=== PATIENT | male | born 1965 | race American Indian/Alaskan Native ===

== ENCOUNTER 2016-11-28 13:28 | Emergency (ER) | payer BC ==
[2016-11-28 13:50] VITALS: BMI 38.7
--- NOTE | 2016-11-28 13:56 | ED PDOC ---
Arrival/HPI - General Chief Complaint: Cough, Cold, Congestion Time Seen by Provider: 11/28/16 13:53 Historian: Patient, Spouse - History of Present Illness Time/Duration: Other (1 day) Symptom Onset: Gradual Symptom Course: Worsening Severity Level: Mild Activities at Onset: Rest Associated Symptoms (Text): 11/28/16 13:55 Patient complains of a nonproductive cough along with shortness of breath since yesterday. No chest pain. No wheezing. No URI symptoms. No earache or sore throat. No fever or chills. No travel or exposures. No injury or trauma. He does not appear ill. Past Medical History - Infectious Disease Hx of Infectious Diseases: None - Tetanus Immunization Tetanus Immunization: Unknown - Past Medical History Past Medical History: No Previous - Cardiac Hx Cardiac Disorders: No - Pulmonary Hx Respiratory Disorders: Yes Hx Bronchitis: Yes - Neurological Hx Neurological Disorder: No - HEENT Hx HEENT Disorder: No - Renal Hx Renal Disorder: No - Endocrine/Metabolic Hx Endocrine Disorders: No - Hematological/Oncological Hx Blood Disorders: No - Integumentary Hx Dermatological Disorder: No - Musculoskeletal/Rheumatological Hx Musculoskeletal Disorders: No - Gastrointestinal Hx Gastrointestinal Disorders: No - Genitourinary/Gynecological Hx Genitourinary Disorders: No - Psychiatric Hx Psychophysiologic Disorder: No Hx Depression: No Hx Emotional Abuse: No Hx Physical Abuse: No Hx Substance Use: No - Past Surgical History Past Surgical History: Non-Contributing - Surgical History Hx Orthopedic Surgery: Yes (left knee) - Anesthesia Hx Anesthesia: Yes Hx Anesthesia Reactions: No - Suicidal Assessment Feels Threatened In Home Enviroment: No Family/Social History - Physician Review Nursing Documentation Reviewed: Yes Family/Social History: Unknown Family HX Smoking Status: Never Smoked Hx Alcohol Use: Yes Frequency of alcohol use: Socially Hx Substance Use: No Hx Substance Use Treatment: No Allergies/Home Meds Allergies/Adverse Reactions: Allergies No Known Allergies Allergy (Verified 02/23/16 20:02) Home Medications: Home Meds Medication Instructions Recorded Confirmed Aspirin [Ecotrin] 81 mg PO DAILY 02/23/16 02/23/16 Review of Systems - Physician Review All systems were reviewed & negative as marked: Yes - Review of Systems Constitutional: Normal ENT: Normal Respiratory: SOB, Cough. absent: Sputum, Wheezing Cardiovascular: Normal Gastrointestinal: Normal Neurological: Normal Physical Exam Vital Signs Temp Pulse Resp BP Pulse Ox 11/28/16 13:56 99.5 F 86 17 163/101 H 100 Temperature: Afebrile Blood Pressure: Hypertensive Pulse: Regular Respiratory Rate: Normal Appearance: Positive for: Well-Appearing, Non-Toxic, Comfortable Pain Distress: None Mental Status: Positive for: Alert and Oriented X 3 - Systems Exam Head: Present: Atraumatic, Normocephalic Pupils: Present: PERRL Extroacular Muscles: Present: EOMI Conjunctiva: Present: Normal Ears: Present: NORMAL TM, Normal Canal. No: Erythema Mouth: Present: Moist Mucous Membranes Pharnyx: No: ERYTHEMA, EXUDATE, TONSILS ENLARGED Neck: Present: Normal Range of Motion Respiratory/Chest: Present: Clear to Auscultation, Good Air Exchange, Decreased Breath Sounds. No: Respiratory Distress, Accessory Muscle Use Cardiovascular: Present: Regular Rate and Rhythm, Normal S1, S2. No: Murmurs Neurological: Present: GCS=15, CN II-XII Intact, Speech Normal, Motor Func Grossly Intact Skin: Present: Warm, Dry, Normal Color. No: Rashes Psychiatric: Present: Alert, Oriented x 3, Normal Insight, Normal Concentration Medical Decision Making ED Course and Treatment: 11/28/16 14:04 Patient will need follow-up with his PMD for hypertension check. Disposition/Present on Arrival - Present on Arrival Any Indicators Present on Arrival: No History of DVT/PE: No History of Uncontrolled Diabetes: No Urinary Catheter: No History of Decub. Ulcer: No History Surgical Site Infection Following: None - Disposition Have Diagnosis and Disposition been Completed?: Yes Diagnosis: Bronchitis, Hypertension Disposition: HOME/ ROUTINE Disposition Time: 14:04 Patient Plan: Discharge Condition: GOOD Discharge Instructions (ExitCare): Acute Bronchitis (ED) Additional Instructions: Follow-up with PMD. Hypertension check with PMD. Tylenol or Advil as directed on bottle as needed. Symptomatic treatment. follow-up in ER as needed. Prescriptions: Benzonatate [Tessalon Perles] 100 mg PO Q8 #30 sgl Albuterol HFA [Ventolin HFA 90 mcg/actuation (8 g)] 2 puff IH [id number] #1 puff Azithromycin [Zithromax] 250 mg PO DAILY #6 tab Forms: [employer] (Ukrainian)
[2016-11-28 13:57] VITALS: BP 163/101; PULSE 86; RESP 17; TEMP 99.5; O2SAT 100
== END 2016-11-28 14:21 | disposition home or self-care (01) ==
LOC: ED 13:28
DX: J40 Bronchitis, not specified as acute or chronic (principal); I10 Essential (primary) hypertension

== ENCOUNTER 2017-03-01 08:08 | Emergency (ER) | payer BC ==
[2017-03-01 08:09] VITALS: BMI 38.7
[2017-03-01 08:33] VITALS: RESP 18
--- NOTE | 2017-03-01 08:41 | ED PDOC ---
Arrival/HPI - General Chief Complaint: Chest Pain Time Seen by Provider: 03/01/17 08:11 Historian: Patient, Spouse () - History of Present Illness Narrative History of Present Illness (Text): 03/01/17 08:24 A 51 year old male, with no significant past medical history, presents to the emergency department complaining of mid-chest pain. Patient reports pain is on and off with episodes last less than 1 minute. Describes pain as "pulling" sensation. 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 Pain is currently resolved. Patient denies any fever, cough, nausea, nasal congestion, or any other complaints. Denies any history of smoking/ EtOH abuse. PMD: Dr. Mamie Fink Past Medical History - Provider Review Nursing Documentation Reviewed: Yes - Infectious Disease Hx of Infectious Diseases: None - Tetanus Immunization Tetanus Immunization: Unknown - Past Medical History Past Medical History: No Previous - Cardiac Hx Cardiac Disorders: No - Pulmonary Hx Respiratory Disorders: Yes Hx Bronchitis: Yes - Neurological Hx Neurological Disorder: No - HEENT Hx HEENT Disorder: No - Renal Hx Renal Disorder: No - Endocrine/Metabolic Hx Endocrine Disorders: No - Hematological/Oncological Hx Blood Disorders: No - Integumentary Hx Dermatological Disorder: No - Musculoskeletal/Rheumatological Hx Musculoskeletal Disorders: No - Gastrointestinal Hx Gastrointestinal Disorders: No - Genitourinary/Gynecological Hx Genitourinary Disorders: No - Psychiatric Hx Psychophysiologic Disorder: No Hx Depression: No Hx Emotional Abuse: No Hx Physical Abuse: No Hx Substance Use: No - Past Surgical History Past Surgical History: Non-Contributing - Surgical History Hx Orthopedic Surgery: Yes (left knee) - Anesthesia Hx Anesthesia: Yes Hx Anesthesia Reactions: No - Suicidal Assessment Feels Threatened In Home Enviroment: No Family/Social History - Physician Review Nursing Documentation Reviewed: Yes Family/Social History: No Known Family HX Smoking Status: Never Smoked Hx Alcohol Use: Yes Frequency of alcohol use: Socially Hx Substance Use: No Hx Substance Use Treatment: No Allergies/Home Meds Allergies/Adverse Reactions: Allergies No Known Allergies Allergy (Verified 02/23/16 20:02) Home Medications: Home Meds Medication Instructions Recorded Confirmed Aspirin [Ecotrin] 81 mg PO DAILY 02/23/16 03/01/17 Review of Systems - Physician Review All systems were reviewed & negative as marked: Yes - Review of Systems Constitutional: absent: Fevers ENT: absent: Sinus Congestion Cardiovascular: Chest Pain (middle of chest) Gastrointestinal: absent: Abdominal Pain, Nausea Physical Exam Vital Signs Reviewed: Yes Vital Signs Temp Pulse Resp BP Pulse Ox 03/01/17 13:31 68 18 171/81 H 97 03/01/17 11:57 65 18 170/104 H 100 03/01/17 10:50 98.8 F 71 18 99 03/01/17 08:19 98.5 F 73 18 177/71 H 99 Temperature: Afebrile Blood Pressure: Hypertensive Pulse: Regular Respiratory Rate: Normal Appearance: Positive for: Well-Appearing Pain Distress: None Mental Status: Positive for: Alert and Oriented X 3 - Systems Exam Respiratory/Chest: Present: Clear to Auscultation, Good Air Exchange, Other ( chest wall tenderness). No: Respiratory Distress, Accessory Muscle Use Cardiovascular: Present: Regular Rate and Rhythm, Normal S1, S2. No: Murmurs Abdomen: Present: Normal Bowel Sounds. No: Tenderness, Distention, Peritoneal Signs Upper Extremity: Present: Normal Inspection. No: Cyanosis, Edema Lower Extremity: Present: Normal Inspection. No: Edema Neurological: Present: GCS=15, CN II-XII Intact, Speech Normal Skin: Present: Warm, Dry, Normal Color. No: Rashes Psychiatric: Present: Alert, Oriented x 3, Normal Insight, Normal Concentration Medical Decision Making ED Course and Treatment: 03/01/17 08:29 Impression: 51 tear old male with mid-chest pain. Physical exam shows chest wall tenderness and no abdominal tenderness; otherwise rest of examination is normal. Differential Diagnosis included but are not limited to: Chest Pain Musculoskeletal vs. Cardiac Plan: -- EKG -- Chest X-ray -- Labs -- Aspirin -- Reassess and disposition Prior Visits: Notes and results from previous visits were reviewed. Patient was last seen in the emergency department on 11/28/2016 for non-productive cough and shortness of breath. Patient was discharged home. Progress Notes: EKG: Ordered, reviewed, and independently interpreted the EKG. Rate : 72 BPM Rhythm : NSR Interpretation : No ST-segment elevations or depressions, no T-wave inversions, normal intervals. Comparison : No change from previous EKG from 05/11/2013. 03/01/2017 09:14 Chest X-ray IMPRESSION: No active disease. No significant interval change compared to the prior examination(s). Dictator: Matheus Vazquez MD Patients EKG normal. CXR negative. Patient has troponin negative x 2. On reevaluation, lungs are CTA b/l. Abdomen is soft, NT, ND, BSx4. Negative Leon' s sign. He is aware of his results and will make sure to follow up with Dr. Mcarthur. He was referred to Dr. Galleog who's automatic centrifugal station operator for Cardiology but he may also consult Dr. Mcarthur for a Equipment Analyst. He was advised to return to the ED if symptoms worsen or any other concern. - Lab Interpretations Lab Results: 03/01/17 08:40 03/01/17 08:40 Lab Results 03/01/17 12:30: Troponin I 0.02 03/01/17 08:40: Sodium 135, Potassium 4.9, Chloride 102, Carbon Dioxide 26, Anion Gap 12, BUN 13, Creatinine 0.8, Est GFR ( Amer) > 60, Est GFR (Non- Af Amer) > 60, Random Glucose 109, Calcium 8.7, Magnesium 1.7, Total Bilirubin 1.6 H, AST 61 H, ALT 50, Alkaline Phosphatase 67, Lactate Dehydrogenase 886 H, Total Creatine Kinase 697 H, CK-MB (CK-2) 4.0 H, CK-MB (CK-2) % Cancelled, Troponin I 0.02 D, Total Protein 8.1, Albumin 4.1, Globulin 3.9, Albumin/ Globulin Ratio 1.1 03/01/17 08:40: WBC 5.1, RBC 4.41, Hgb 14.0, Hct 40.5 L, MCV 91.8, MCH 31.7, MCHC 34.6, RDW 12.8, Plt Count 260, MPV 9.9, Gran % 52.9, Lymph % (Auto) 36.6 H , [place] % (Auto) 8.1 H, Eos % (Auto) 2.2, Baso % (Auto) 0.2, Gran # 2.68, Lymph # 1.9, [place] # 0.4, Eos # 0.1, Baso # 0.01 I have reviewed the lab results: Yes - RAD Interpretation Radiology Orders: 03/01/17 08:29 CHEST PORTABLE [RAD] Stat - Medication Orders Current Medication Orders: Discontinued Medications Aspirin (Aspirin) 325 mg PO STAT STA Stop: 03/01/17 08:30 Last Admin: 03/01/17 08:49 Dose: 325 mg - Scribe Statement The provider has reviewed the documentation as recorded by the Milo Porter Provider Milo Attestation: All medical record entries made by the Delfinoiblynette were at my direction and personally dictated by me. I have reviewed the chart and agree that the record accurately reflects my personal performance of the history, physical exam, medical decision making, and the department course for this patient. I have also personally directed, reviewed, and agree with the discharge instructions and disposition. Disposition/Present on Arrival - Present on Arrival Any Indicators Present on Arrival: No History of DVT/PE: No History of Uncontrolled Diabetes: No Urinary Catheter: No History of Decub. Ulcer: No History Surgical Site Infection Following: None - Disposition Have Diagnosis and Disposition been Completed?: Yes Diagnosis: Chest pain Disposition: HOME/ ROUTINE Disposition Time: 13:33 Condition: IMPROVED Discharge Instructions (ExitCare): Chest Pain (ED), Hypertension (ED) Additional Instructions: Mr Weiss, thank you for letting us take care of you today. Your provider was Dr. Alfaro You were treated for Chest Pain. The emergency medical care you received today was directed at your acute symptoms. If you were prescribed any medication, please fill it and take as directed. It may take several days for your symptoms to resolve. Return to the Emergency Department if your symptoms worsen, do not improve, or if you have any other problems. Please contact your doctor or call one of the physicians/clinics you have been referred to that are listed on the Patient Visit Information form that is included in your discharge packet. Bring any paperwork you were given at discharge with you along with any medications you are taking to your follow up visit. Our treatment cannot replace ongoing medical care by a primary care provider (PCP) outside of the emergency department. Thank you for allowing the [facility] team to be part of your care today. If you had an X-Ray or CT scan: A Radiologist will review the ED reading if any change in treatment is needed we will contact you. If you had a blood, urine, or wound culture: It will take several days for the results, if any change in treatment is needed we will contact you. If you had an STI test: It will take 48 hours for the results. Please call after 1 week if you have not heard back. Referrals: Robinson Gallego MD [Staff Provider] - Follow up with primary Mamie Key MD [Family Provider] - Follow up with primary Forms: [employer] (Bangladeshi), WORK NOTE
[2017-03-01 08:52] LABS: BASO # 0.01 K/mm3 (0.0-2.0); BASO % 0.2 % (0.0-3.0); EOS # 0.1 (0.0-0.7); EOS % 2.2 % (1.5-5.0); GRAN # 2.68 (1.4-6.5); GRAN % 52.9 % (50.0-68.0); LYMPH # 1.9 (1.2-3.4); LYMPH % 36.6 % (22.0-35.0); MEAN CELL VOLUME 91.8 fl (80.0-105.0); MEAN CORPUSCULAR HEMOGLOBIN 31.7 pg (25.0-35.0); MEAN CORPUSCULAR HGB CONC 34.6 g/dl (31.0-37.0); MEAN PLATELET VOLUME 9.9 fl (7.0-11.0); MONO # 0.4 (0.1-0.6); MONO % 8.1 % (1.0-6.0); RBC 4.41 10^6/uL (3.5-6.1); RED CELL DISTRIBUTION WIDTH 12.8 % (11.5-14.5); WHITE BLOOD COUNT 5.1 10^3/ul (4.5-11.0)
--- NOTE | 2017-03-01 09:16 | RAD ---
HISTORY: Chest pain. Portable study 08:40 COMPARISON: 02/23/2016 FINDINGS: LUNGS: No active pulmonary disease. PLEURA: No significant pleural effusion identified, no pneumothorax apparent. CARDIOVASCULAR: No radiographic findings to suggest acute or significant cardiovascular disease. OSSEOUS STRUCTURES: No significant abnormalities. VISUALIZED UPPER ABDOMEN: Normal. OTHER FINDINGS: None. IMPRESSION: No active disease. No significant interval change compared to the prior examination(s).
[2017-03-01 10:43] LABS: ALB/GLOB RATIO 1.1 (1.1-1.8); ALBUMIN 4.1 g/dL (3.0-4.8); ALT/SGPT 50 U/L (7-56); AST/SGOT 61 U/L (17-59); BLOOD UREA NITROGEN 13 mg/dL (7-21); CALCIUM 8.7 mg/dL (8.4-10.5); GFR AFRICAN-AMERICAN > 60; GFR NON-AFRICAN AMERICAN > 60; MAGNESIUM 1.7 mg/dL (1.7-2.2)
[2017-03-01 10:52] VITALS: TEMP 98.8
[2017-03-01 11:02] LABS: TROPONIN I 0.02 ng/mL
[2017-03-01 13:32] VITALS: BP 171/81; PULSE 68; O2SAT 97
--- NOTE | 2017-03-01 13:47 | CARD ---
APPROVED REPORT EKG Measurement Heart [id number] HI [id number] [id number] <Conclusion> Normal sinus rhythm Minimal voltage criteria for LVH, may be normal variant Nonspecific T wave abnormality PRWP V 1 - 4
== END 2017-03-01 13:33 | disposition home or self-care (01) ==
LOC: ED 08:08
DX: R07.9 Chest pain, unspecified (principal)